=== PATIENT | male | born 1995 | race Hispanic/Latino ===

== ENCOUNTER → 2023-11-20 | Emergency (ER) | payer OTHER ==
--- OUTSIDE RECORDS SUMMARY | 2023-11-20 22:03 | XMS REPORT | Continuity of Care Document ---
Author Name Unknown Address [address] [place] [address] [facility] thconnect Address [address] [place] [address] Care Team Providers Care Animal Rescuer Name Role Phone PCP, PATIENT DOES NOT HAVE A Primary Care Physic ajit Unavailable Only, Ang Db Test Attending Clinician UnavailJustice Green Attending Clinician [phone] JUSTICE VILLELA Attending Clinician Unavailable Doctor Unassigned, [place] Attending Clinician U navailable Payers Payer Name Policy Type Policy Number Effective Date Expirati on Date Source Problems Condition Name Condition Details Condition Category Status Onset Date Resolution Date Last Treatment Date Treating Clinician Comments Source No known active problems No known active problems Disease Univers [facility] Allergies, Adverse Reactions, Alerts Allergy Name Allergy Type Status Severity Reaction(s) Onset Date Inactive Date Treating Clinician Comments Source NO KNOWN ALLERGIE S Drug Class Active [facility] Social History Social Habit Start Date Stop Date Quantity Comments Source Exposure to SARS-CoV-2 (event) Not sure [facility] Alcohol intake 2016-03-29 00:00:00 2016-03-29 00:00:00 0 /d [facility] Sex Assigned At 1995 00:00[birth year]00 1995 00[birth year]:00 [facility] Smoking Status Start Date Stop Date Source Never smoker [facility] Medications Ordered Medication Name Filled Medication Name Start Date Stop Date Current Medication? Ordering Clinician Indication Dosage Frequency Signature (SIG) Comments Components Source No known medications 2020-09 19:48: 57 No [facility] No known medications 03-29 09:44: 21 No [facility] Encounters Start Date/Time End Date/Time Encounter Type Admission Type Attending [facility] Care Department Encounter ID Source 2021-09-22 20:00:00 2021-09-22 20:15:00 Laboratory Only Only, Ang Db Test T[facility] 1..[id number] [facility] 2021-09-22 20:00:00 2021-09-22 20:00:00 Outpatient R TIKA [facility] [id number] [facility] 2021-09-22 00:00:00 2021-09-22 00:00:00 Letter (Out) Doctor Unassigned, [place] [facility] 1..[id number] [facility]
[2023-11-20 23:58] LABS: Absolute Lymphocytes (CBC) 1.7 K/uL (0.7-4.9); Lymphocytes % 16.6 % (15.3-44.8); MCV 86.1 fL (80-100); MPV 8.5 fL (7.6-11.3); Platelets 218 thou/uL (152-406); RBC Red Blood Cell Count 4.99 M/uL (4.33-5.43)
[2023-11-21 00:03] LABS: Protime INR 1.05
[2023-11-21 00:09] LABS: Barbiturates NEGATIVE (NEGATIVE); Benzodiazepines NEGATIVE (NEGATIVE); Cocaine NEGATIVE (NEGATIVE); METHAMPHETAM NEGATIVE (NEGATIVE); Methadone NEGATIVE (NEGATIVE); Opiates NEGATIVE (NEGATIVE); Phencyclidine NEGATIVE (NEGATIVE); THC Cannibis NEGATIVE (NEGATIVE)
[2023-11-21 00:13] LABS: ALT/SGPT 31 U/L (16-61); AST/SGOT 14 U/L (15-37); Albumin 3.8 g/dL (3.4-5.0); Alkaline Phosphatase 89 U/L (45-117); BUN Blood Urea Nitrogen 17 mg/dL (7-18); Bicarbonate 26 mEq/L (21-32); Bilirubin Total 0.2 mg/dL (0.2-1.0); Glomerular Filtration Rate 100 ml/min (=/>90); Glucose Level 111 mg/dL (74-106); Potassium 3.6 mEq/L (3.5-5.1); Protein, Total 6.8 g/dL (6.4-8.2); Sodium Level 139 mEq/L (136-145); Troponin High Sensitivity 3.7 pg/mL (<58.9)
[2023-11-21 00:16] LABS: Bilirubin Direct < 0.1 mg/dL (0-0.2); Bilirubin Indirect, Calculated ND mg/dL (0.2-0.8)
[2023-11-21 00:24] LABS: Renal Epithelial <5 /HPF (None Seen); Specific Gravity 1.022 (1.005-1.030); Urine Bacteria None Seen /HPF (<20); Urine Bilirubin NEGATIVE (Negative); Urine Blood Negative (Negative); Urine Clarity Clear (Clear); Urine Color Light-Yellow (Yellow); Urine Glucose NEGATIVE (Negative); Urine Protein NEGATIVE (Negative); Urine RBC <5 /HPF (None Seen); Urine Urobilinogen Normal (Normal); Urine pH 6.5 (5.0-7.0)
--- NOTE | 2023-11-21 00:29 | EDPHYS ---
Physician Documentation [facility] Name: Howard Panchal Age: 28 yrs Sex: Male : 1995 Arrival Date: 11/20/2023 Time: 21:59 Bed 2 Private MD: ED Physician Jalen Wagner HPI: 11/20 23:30 This 28 yrs old Male presents to ER via Ambulatory with complaints of kb Weakness, Dizziness. 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 States he was laying in bed and started feeling lightheaded so he got up and went to tell his mom. States he walked into the living room and almost passed out. Historical: - Allergies: 22:08 No Known Allergies; ap3 - Home Meds: 22:08 None [Active]; ap3 - PMHx: 22:08 None; ap3 - Immunization history:: Client reports receiving the 2nd dose of the Covid vaccine, Flu vaccine is not up to date. - Social history:: Smoking status: Patient denies any tobacco usage or history of. Patient uses alcohol, occasionally. ROS: 23:29 Constitutional: Negative for fever, chills, and weight loss, kb 23:29 Neuro: Positive for near syncope, 23:29 All other systems are negative, Exam: 23:29 Constitutional: This is a well developed, well nourished patient who is awake, alert, kb and in no acute distress. Head/Face: Normocephalic, atraumatic. ENT: Moist Mucous membranes Cardiovascular: Regular rate Respiratory: Respirations even and unlabored. No increased work of breathing. Talking in full sentences Abdomen/GI: Soft, non-tender. No distention Skin: Warm, dry with normal turgor. Normal color. MS/ Extremity: Pulses equal, no cyanosis. Neurovascular intact. Full, normal range of motion. Neuro: Awake and alert, GCS 15, oriented to person, place, time, and situation. Moves all extremities. Normal gait. 23:29 ECG was reviewed by the Attending Physician. Vital Signs: 22:07 BP 132 / 82; Pulse 64; Resp 17; Temp 98.2; Pulse Ox 100% ; Weight 79.38 kg; Height 5 ap3 ft. 8 in. ; Pain 0/10; 23:29 BP 127 / 71; Pulse 59; Resp 16; Pulse Ox 100% ; vc1 11/21 00:00 BP 130 / 68; Pulse 59; Resp 16; Pulse Ox 99% ; vc1 00:50 Pulse 60; Resp 17; Pulse Ox 100% ; Pain 0/10; jj7 11/20 22:07 Body Mass Index 26.61 (79.38 kg, 172.72 cm) ap3 11/20 22:07 Pain Scale: Adult ap3 00:50 Pain Scale: Adult jj7 MDM: 11/20 22:10 Patient medically screened. kb 23:29 Data reviewed: vital signs, nurses notes. kb 23:31 Differential Diagnosis: cardiac arrhythmia, emotional response, idiopathic syncope, kb vasovagal episode, electrolyte abnormality, dehydration. 11/21 00:28 Counseling: I had a detailed discussion with the patient and/or guardian regarding the kb historical points, exam findings, and any diagnostic results supporting the discharge/admit diagnosis, lab results, radiology results, the need for outpatient follow up, a family practitioner, to return to the emergency department if symptoms worsen or persist or if there are any questions or concerns that arise at home. 11/20 22:15 Order name: Basic Metabolic Panel; Complete Time: 00: kb 11/20 22:15 Order name: CBC with Diff; Complete Time: 00:14 kb 11/20 22:15 Order name: Hepatic Function; Complete Time: 00: kb 11/20 22:15 Order name: Magnesium; Complete Time: 00: kb 11/20 22:15 Order name: Protime (+inr); Complete Time: 00:05 kb 11/20 22:15 Order name: Ptt, Activated; Complete Time: 00:05 kb 11/20 22:15 Order name: Troponin High Sensitivity; Complete Time: 00: kb 11/20 22:15 Order name: UDS; Complete Time: 00:11 kb 11/20 22:15 Order name: Urinalysis w/ reflexes; Complete Time: 00:26 kb 11/20 22:15 Order name: Chest Single View XRAY kb 11/20 22:15 Order name: EKG; Complete Time: 22:16 kb 11/20 22:15 Order name: Cardiac monitoring; Complete Time: 23:30 kb 11/20 22:15 Order name: EKG - Nurse/Tech; Complete Time: 23:30 kb 11/20 22:15 Order name: IV Saline Lock; Complete Time: 23:30 kb 11/20 22:15 Order name: Labs collected and sent; Complete Time: 23:30 kb 11/20 22:15 Order name: NPO; Complete Time: 23:30 kb 11/20 22:15 Order name: O2 Per Protocol; Complete Time: 23:30 kb 11/20 22:15 Order name: O2 Sat Monitoring; Complete Time: 23:30 kb 11/20 22:15 Order name: Orthostatics; Complete Time: 23:30 kb EC/27 23:29 Rate is 58 beats/min. Rhythm is regular. QRS [place] is Normal. NC interval is normal at kb 134 msec. QRS interval is normal at 98 msec. QT interval is normal at 402 msec. Administered Medications: No medications were administered Disposition: 11/21 22:27 Co-signature as Attending Physician, Jalen Wagner MD I agree with the assessment sp4 and plan of care. I reviewed the patient's care provided by the Advanced Practice Provider and agree with the diagnosis and treatment plan. Disposition Summary: 11/21/23 00:28 Discharge Ordered Notes: Location: Home kb Condition: Stable kb Diagnosis - Syncope Near kb Followup: kb - With: Emergency Department - When: As needed - Reason: Worsening of condition Followup: kb - With: Private Physician - When: 2 - 3 days - Reason: Recheck today's complaints, Continuance of care, Re-evaluation by your physician Discharge Instructions: - Discharge Summary Sheet kb - Near-Syncope, [id number] kb Forms: - Medication Reconciliation Form kb - Thank You Letter kb - Antibiotic Education kb - Prescription Opioid Use kb - Patient Portal Instructions kb - Leadership Thank You Letter kb Signatures: Dispatcher [employer] Geovanna Chowdhury, MALENA POTTS-An Villalta RN RN Jalen Martino MD MD sp4
--- NOTE | 2023-11-21 00:29 | ER ---
Nurse's Notes [facility] Name: Howard Panchal Age: 28 yrs Sex: Male : 1995 Arrival Date: 11/20/2023 Time: 21:59 Bed 2 Private MD: Diagnosis: Syncope Near Presentation: 11/20 22:07 Chief complaint: Patient states: he was laying in bed, trying to fall asleep when he ap3 reports feeling light headed. patient then states he got up to try to start feeling better, and the symptoms got worse. patient states he then got his mom, and then laid on the couch. patient also states he felt like he was "on the verge of passing out". Coronavirus screen: At this time, the client does not indicate any symptoms associated with coronavirus-19. Ebola Screen: No symptoms or risks identified at this time. Initial Sepsis Screen: Does the patient meet any 2 criteria? No. Patient's initial sepsis screen is negative. Risk Assessment: Do you want to hurt yourself or someone else? Patient reports no desire to harm self or others. Onset of symptoms was November 20, 2023. 22:07 Method Of Arrival: Ambulatory ap3 22:07 Acuity: SAVANNA 3 ap3 23:24 Initial Sepsis Screen: Does the patient have a suspected source of infection? No. vc1 Patient's initial sepsis screen is negative. Triage Assessment: 22:09 General: Appears in no apparent distress. Behavior is calm, cooperative, appropriate ap3 for age. Pain: Denies pain. 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 Cardiovascular: Patient's skin is warm and dry. Respiratory: Airway is patent Respiratory effort is even, unlabored, Respiratory pattern is regular, symmetrical. Historical: - Allergies: 22:08 No Known Allergies; ap3 - Home Meds: 22:08 None [Active]; ap3 - PMHx: 22:08 None; ap3 - Immunization history:: Client reports receiving the 2nd dose of the Covid vaccine, Flu vaccine is not up to date. - Social history:: Smoking status: Patient denies any tobacco usage or history of. Patient uses alcohol, occasionally. Screenin:10 Abuse screen: Denies threats or abuse. Nutritional screening: No deficits noted. ap3 Tuberculosis screening: No symptoms or risk factors identified. 23:29 [facility] ED Fall Risk Assessment (Adult) History of falling in the last 3 months, vc1 including since admission No falls in past 3 months (0 pts) Confusion or Disorientation No (0 pts) Intoxicated or Sedated No (0 pts) Impaired Gait No (0 pts) Mobility Assist Device Used No (0 pt) Altered Elimination No (0 pt) Score/Fall Risk Level 0 - 2 = Low Risk Oriented to surroundings, Maintained a safe environment, Educated pt \\T\\ family on fall prevention, incl call for assistance when getting out of bed. Assessment: 23:27 General: Appears in no apparent distress. comfortable, Behavior is calm, cooperative, vc1 appropriate for age. Pain: Denies pain. Neuro: Level of Consciousness is awake, alert, obeys commands, Oriented to person, place, time, situation, Appropriate for age Reports passing out prior to arrival, currently lightheaded. Cardiovascular: No deficits noted. Respiratory: Airway is patent Respiratory effort is even, unlabored, Respiratory pattern is regular, symmetrical, Breath sounds are clear. GI: No deficits noted. No signs and/or symptoms were reported involving the gastrointestinal system. Abdomen is flat, non-distended, Bowel sounds present X 4 quads. : No deficits noted. No signs and/or symptoms were reported regarding the genitourinary system. EENT: No deficits noted. No signs and/or symptoms were reported regarding the EENT system. Derm: No deficits noted. No signs and/or symptoms reported regarding the dermatologic system. 11/21 00:17 Reassessment: Patient appears in no apparent distress at this time. No changes from vc1 previously documented assessment. Patient and/or family updated on plan of care and expected duration. Pain level reassessed. Vital Signs: 11/20 22:07 BP 132 / 82; Pulse 64; Resp 17; Temp 98.2; Pulse Ox 100% ; Weight 79.38 kg; Height 5 ap3 ft. 8 in. ; Pain 0/10; 23:29 BP 127 / 71; Pulse 59; Resp 16; Pulse Ox 100% ; vc1 11/21 00:00 BP 130 / 68; Pulse 59; Resp 16; Pulse Ox 99% ; vc1 00:50 Pulse 60; Resp 17; Pulse Ox 100% ; Pain 0/10; jj7 11/20 22:07 Body Mass Index 26.61 (79.38 kg, 172.72 cm) ap3 02 22:07 Pain Scale: Adult ap3 00:50 Pain Scale: Adult jj7 ED Course: 11/20 22:03 Patient arrived in ED. kj1 22:06 [facility] kb 22:06 Jalen Wagner MD is Attending Physician. kb 22:08 Triage completed. ap3 22:10 Arm band placed on right wrist. ap3 22:10 Patient has correct armband on for positive identification. ap3 22:48 Chest Single View XRAY In Process Unspecified. EDMS 23:28 Inserted saline lock: 20 gauge in right forearm, using aseptic technique. Blood oe collected. 02 00:48 No provider procedures requiring assistance completed. IV discontinued, intact, jj7 bleeding controlled, No redness/swelling at site. Pressure dressing applied. Administered Medications: No medications were administered Medication: 11/20 22:10 VIS not applicable for this client. ap3 Outcome: 02 00:28 Discharge ordered by . kb 00:48 Discharged to home ambulatory, with family, jj7 00:48 Condition: good 00:48 Discharge instructions given to patient, Instructed on discharge instructions, Demonstrated understanding of instructions, 00:51 Patient left the ED. jj7 Signatures: Dispatcher [employer] EDME Geovanna Mendez FNP-C FNP-Jordan Jones Amanda, RN RN ap3 Hannah Mendez kj1 Jami Barcenas RN RN vc1 Ross Marie RN RN jj7
[2023-11-21 00:59] VITALS: BP 130/68; TEMP 98.2
[2023-11-21 01:22] VITALS: O2SAT 100
--- NOTE | 2023-11-21 13:03 | RAD REPORT ---
EXAM DESCRIPTION: RAD - Chest Single View - 11/20/2023 10:46 pm CLINICAL HISTORY: 28 years, Male, PALPITATIONS COMPARISON: None FINDINGS: 1 views of the chest was obtained. No prior films are available at this time for compari son. There is normal lung volume. Mediastinum: The cardiomediastinal silhouette appears normal in size and shape. Lungs: No areas of consolidations or masses are identified. Heart: The heart is normal in size. Aorta: The thoracic aorta demonstrate to be within normal limits. Pulmonary vasculature: The pulmonary vasculature is normal in distribution. Pleura: The costophrenic angles demonstrate to be sharp. Osseous structures: The bony structures demonstrate to be within normal limits. Other: None. 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 The interpreting r adiologist is fully responsible for the content of the report.
== END ==
LOC: ER 21:59
DX: R55 Syncope and collapse (principal)
CPT/HCPCS: 36415; 71045; 80048; 80076; 80307; 81001; 83735; 84484; 85025; 85610; 85730; 93005